=== PATIENT | male | born 1950 | race Caucasian/White ===

== ENCOUNTER 2016-07-22 21:15 | Emergency (ER) | payer MEDICARE ==
[2016-07-22] MEDS ORDERED: oxyCODONE/Acetamin 5/325 MG* TAB PO ONE ×2 (22:00→23:45)
[2016-07-22] MEDS ORDERED: Amoxicillin/Clavulanate TAB* 875 MG PO ONE (23:16)
[2016-07-22 23:48] VITALS: BP 123/53
--- NOTE | 2016-07-23 23:16 | ED ---
Lila Stanton Anna, scribed for Jose Rodriguez MD on 07/22/16 at 2206 . Bite Injury/Animal - HPI Summary HPI Summary: Patient is a 65 y/o male coming to [facility] presenting with sudden onset of an animal bite that occurred at 2100 this evening. His dog bit his nose, which now hurts with a pain of severity 10/10. The patient reports that he is up to date on his tetanus shot and that his dog is up-to-date on her vaccinations. He denies other symptoms. The bleeding is controlled with pressure. - History of Current Complaint Chief Complaint: EDAnimalBite Stated Complaint: DOG BITE Time Seen by Provider: 07/22/16 21:54 Hx Obtained From: Patient Onset of Injury: Happened minutes ago Type of Bite: Animal Has Animal Been Immunized?: Yes Pain Intensity: 10 Pain Scale Used: 0-10 Numeric - Allergies/Home Medications Allergies/Adverse Reactions: Allergies Allergy/AdvReac Type Severity Reaction Status Date / Time No Known Allergies Allergy Verified 07/22/16 21:22 PMH/Surg Hx/FS Hx/Imm Hx Previously Healthy: Yes Cardiovascular History: Reports: Hx Hypertension Infectious Disease History: No Infectious Disease History: Denies: Traveled Outside the [place] in Last 30 Days - Family History Known Family History: Negative: Cardiac Disease, Diabetes - Social History Lives: With Family Alcohol Use: None Hx Substance Use: No Substance Use Type: Reports: None Hx Tobacco Use: No Smoking Status (MU): Never Smoked Tobacco Review of Systems Positive: Other - animal bite to nose Psychological: Normal All Other Systems Reviewed And Are Negative: Yes Physical Exam Triage Information Reviewed: Yes Vital Signs On Initial Exam: Initial Vitals Temp Pulse Resp BP Pulse Ox 98.1 F 91 20 133/97 96 07/22/16 21:15 07/22/16 21:15 07/22/16 21:15 07/22/16 21:15 07/22/16 21:15 Vital Signs Reviewed: Yes Appearance: Positive: Well-Appearing, No Pain Distress Skin: Positive: Warm, Skin Color Reflects Adequate Perfusion, Dry Head/Face: Positive: Other - Flap-type laceration of lateral left naris through and through Eyes: Positive: Normal ENT: Positive: Normal ENT inspection Neck: Positive: Supple, Nontender Respiratory/Lung Sounds: Positive: Clear to Auscultation, Breath Sounds Present Cardiovascular: Positive: RRR Abdomen Description: Positive: Nontender, Soft Bowel Sounds: Positive: Present Musculoskeletal: Positive: Normal Neurological: Positive: Normal Psychiatric: Positive: Affect/Mood Appropriate Procedures - Laceration/Wound Repair 1 Location: face - left nare Description: Irregular - A full-thickness flap-type laceration of the left nare Anesthesia: Local, 2.0%, Lido Length, Depth and Shape: 3 cm Betadine Prep?: No - Hibiclens Laceration/Wound Explored: contaminated - dog bite and mucus from his nose Closure: Single Layer - the outside was closed and the inside was left open to drain Suture Type: Nylon - 6.0 Number of Sutures: 10 - simple interrupted Layer Closure?: No Sterile Dressing Applied?: Yes Diagnostics - Vital Signs Vital Signs Temp Pulse Resp BP Pulse Ox 07/22/16 21:15 98.1 F 91 20 133/97 96 - Laboratory Lab Statement: Any lab studies that have been ordered have been reviewed, and results considered in the medical decision making process. Bite Injury Course/Dx - Course Assessment/Plan: Patient is a 65 y/o male coming to [facility] presenting with sudden onset of an animal bite that occurred at 2100 this evening. His dog bit his nose, which now hurts with a pain of severity 10/10. The patient reports that he is up to date on his tetanus shot and that his dog is up-to-date on her vaccinations. He denies other symptoms. The bleeding is controlled with pressure. - Diagnoses Provider Diagnosis: Nasal laceration Discharge - Discharge Plan Condition: Stable Disposition: HOME Prescriptions: Amoxicillin/Clavulanate TAB* [Augmentin TAB 875*] 875 mg PO BID #14 tab oxyCODONE/Acetamin 5/325 MG* [Percocet 5/325 TAB*] 1 tab PO Q6H PRN #20 tab MDD 4 PRN Reason: Pain Patient Education Materials: Oxycodone/Acetaminophen (By mouth), Amoxicillin/ Clavulanate Potassium (By mouth), Animal Bite (ED), Laceration (ED) Referrals: [facility] PHYSICIAN REFERRAL [Outside] Additional Instructions: Follow up with primary care physician within 48 hours. Return to the emergency department for changing or worsening symptoms. The documentation as recorded by the Lila pierce Anna accurately reflects the service I personally performed and the decisions made by , Jose Rodriguez MD.
== END 2016-07-22 23:40 | disposition home or self-care (01) ==
LOC: ED 21:15
DX: S01.25XA Open bite of nose, initial encounter (principal); W54.0XXA Bitten by dog, initial encounter; Y92.9 Unspecified place or not applicable; I10 Essential (primary) hypertension
CPT/HCPCS: 12013; 99283; A9270-GY

== ENCOUNTER 2017-11-29 19:02 | Emergency (ER) | payer MEDICARE, OTHER ==
[2017-11-29] MEDS ORDERED: Lidocaine 1%* 5 ML VIAL INJ ONE (19:37)
[2017-11-29] MEDS ORDERED: Lidocaine 1%* 5 ML VIAL ONE (19:40)
--- NOTE | 2017-11-29 19:45 | ED ---
Lower Extremity - HPI Summary HPI Summary: Pt. is a 67 y.o male who presents to the ER for a right foot injury that occurred today. Pt. states he was swimming at the [facility] pool when he hit his right heel on the concrete. Associated symptoms of laceration. Pt. states foot is very painful with ambulation. Pt. states his last tetanus was within 5 years. Is on Xarelto. Symptoms are mild in severity. - History of Current Complaint Chief Complaint: EDExtremityLower Stated Complaint: RT FOOT LAC Time Seen by Provider: 11/29/17 19:23 Hx Obtained From: Patient Pain Intensity: 6 - Allergies/Home Medications Allergies/Adverse Reactions: Allergies Allergy/AdvReac Type Severity Reaction Status Date / Time No Known Allergies Allergy Verified 11/29/17 19:21 Home Medications: Home Medications NK [No Home Medications Reported] 11/29/17 [History Confirmed 11/29/17] PMH/Surg Hx/FS Hx/Imm Hx Previously Healthy: Yes Cardiovascular History: Reports: Hx Hypertension - Immunization History Date of Tetanus Vaccine: 4 years ago Infectious Disease History: No Infectious Disease History: Denies: Traveled Outside the [place] in Last 30 Days - Family History Known Family History: Negative: Cardiac Disease, Diabetes - Social History Alcohol Use: None Hx Substance Use: No Substance Use Type: Reports: None Hx Tobacco Use: No Smoking Status (MU): Never Smoked Tobacco Review of Systems Positive: Other - Right foot pain and laceration All Other Systems Reviewed And Are Negative: Yes Physical Exam Triage Information Reviewed: Yes Vital Signs On Initial Exam: Initial Vitals Temp Pulse Resp BP Pulse Ox 97.5 F 70 14 143/87 96 11/29/17 19:15 11/29/17 19:15 11/29/17 19:15 11/29/17 19:15 11/29/17 19:15 Vital Signs Reviewed: Yes Appearance: Positive: Well-Appearing - Pt. lying on bed in NAD. Skin: Positive: Warm, Dry Head/Face: Positive: Normal Head/Face Inspection Eyes: Positive: Normal Musculoskeletal: Positive: Other Neurological: Positive: Normal, CN Intact II-III, Ataxic Gait - 1 cm laceration noted to the posterior right foot. No active bleeding. Pain to the calcaneus. Achilles tendon is intact. Psychiatric: Positive: Affect/Mood Appropriate Procedures - Laceration/Wound Repair 1 Location: lower extremity - Right heel Description: Linear Anesthesia: Local, 1.0% Length, Depth and Shape: 1cm linear Betadine Prep?: No - hibiclens Laceration/Wound Explored: clean Suture Type: Nylon - 4-0 Number of Sutures: 3 Layer Closure?: No Sterile Dressing Applied?: Yes Diagnostics - Vital Signs Vital Signs Temp Pulse Resp BP Pulse Ox 11/29/17 19:15 97.5 F 70 14 143/87 96 - Laboratory Lab Statement: Any lab studies that have been ordered have been reviewed, and results considered in the medical decision making process. Lower Extremity Course/Dx - Course Course Of Treatment: Patient presenting for right foot injury and laceration. Strays negative for acute findings, reading per radiology. Wound was cleaned and repaired as noted above. Advised patient daily wound checks. Suture removal in 7-10 days. To keep wound clean and dry. To ice and elevate foot intermittently. To return to the ER for redness, swelling or drainage from wound. Tylenol for pain as directed. Pt. understands and agrees with plan. - Diagnoses Differential Diagnosis/HQI/PQRI: Positive: Fracture (Closed), Puncture Wound, Sprain, Strain Provider Diagnoses: Contusion, Laceration Discharge - Sign-Out/Discharge Documenting (check all that apply): Discharge/Admit/Transfer - Discharge Plan Condition: Good Disposition: HOME Patient Education Materials: Care For Your Stitches (ED), Laceration (ED) Referrals: Torey Alexis MD [Primary Care Provider] - Additional Instructions: Suture removal in 7 days Daily wound checks Keep wound clean and dry Ice and elevate Tylenol for pain as directed Return to ER for redness, swelling or drainage from wound site - Billing Disposition and Condition Condition: GOOD Disposition: Home
--- NOTE | 2017-11-29 20:02 | RAD ---
Indication: Right foot pain. 3 views of the right foot demonstrates no fracture. Fusion of the calcaneus and talus. IMPRESSION: No fracture of the right foot is noted.
[2017-11-29 20:30] VITALS: BP 156/83
== END 2017-11-29 20:29 | disposition home or self-care (01) ==
LOC: ED 19:02
DX: S91.311A Laceration without foreign body, right foot, initial encounter (principal); S90.31XA Contusion of right foot, initial encounter; W22.8XXA Striking against or struck by other objects, initial encounter; Y93.11 Activity, swimming; Y92.9 Unspecified place or not applicable; I10 Essential (primary) hypertension
CPT/HCPCS: 12001; 99283

== ENCOUNTER 2019-06-05 05:59 | Day surgery (SDC) | payer MEDICARE, OTHER ==
[~2019-06-05 05:59] MED LIST: DiMENhydriNATE IV* 50 MG/ML VIAL IV PUSH PRN; HYDROmorphone INJ1* 1 MG/ML SYRINGE IV PRN; Naloxone* 0.4 MG/ML 1 ML VIAL IV PRN; PROCHLORPERAZINE INJ 5 MG/ML 2 ML VIAL IV PRN; oxyCODONE TAB* 5 MG TAB PO PRN
[2019-06-05] MEDS ORDERED: Dexamethasone TAB* 4 MG PO ONE (06:00)
[2019-06-05] MEDS ORDERED: Famotidine IV* 10 MG/ML 2 ML (20 mg) IV ONE (06:00)
[2019-06-05] MEDS ORDERED: Lactated Ringers 1000 ML Bag* 1,000 ML IV SCH (06:00)
[2019-06-05] MEDS ORDERED: Ondansetron ODT TAB* 4 MG PO ONE (06:00)
[2019-06-05] MEDS ORDERED: Famotidine IV* 10 MG/ML 2 ML (20 mg) ONE (06:13)
[2019-06-05] MEDS ORDERED: Dexamethasone TAB* 4 MG ONE (06:13)
[2019-06-05] MEDS ORDERED: Ondansetron ODT TAB* 4 MG ONE (06:13)
[2019-06-05] MEDS ORDERED: Buffered Lidocaine 1% SYRIN* 1 ML/SYRINGE INTRADERM ONE ×2 (06:13→09:09)
[2019-06-05] MEDS ORDERED: ceFAZolin 2 GM in NS PREMIX(*) 2 GM/100 ML BAG IVPB ONE (06:14)
[2019-06-05] MEDS ORDERED: fentaNYL* 50 MCG/ML 2 ML VIAL (100 MCG VIAL) ONE ×3 (06:57→10:45)
[2019-06-05] MEDS ORDERED: Midazolam* 1 MG/ML 5 ML VIAL (5 MG) ONE (06:57)
[2019-06-05] MEDS ORDERED: Propofol* 10 MG/ML 20 ML BTL ONE (06:57)
[2019-06-05] MEDS ORDERED: KETAMINE HCL* 50 MG/ML 10 ML VIAL ONE (06:57)
[2019-06-05] MEDS ORDERED: ROPIVACAINE 5 MG/ML 30 ML BTL (0.5%) ONE (06:58)
[2019-06-05] MEDS ORDERED: Bupivacaine 0.5%* 50 ML MDV VIAL ONE (07:00)
[2019-06-05] MEDS ORDERED: EPHEDrine (Pressors)* 50 MG/ML VIAL ONE (08:33)
[2019-06-05] MEDS ORDERED: Acetaminophen IV 1GM/100ML * 100 ML ONE (08:33)
[2019-06-05] MEDS ORDERED: Phenylephrine 10 MG/ML VIAL* 1 ML VIAL ONE (08:33)
[2019-06-05] MEDS ORDERED: Phenylephrine 40 MCG/ML SYRINGE ONE (08:33)
[2019-06-05] MEDS ORDERED: Ketorolac INJ* 30 MG/ML 1 ML VIAL ONE (09:37)
[2019-06-05] MEDS: fentaNYL* 50 MCG/ML 2 ML VIAL (100 MCG VIAL) IV PRN ×4 (10:46→11:16)
--- NOTE | 2019-06-05 10:56 | OP ---
Operative Report - Blank - Operative Report Date of Operation: 06/05/19 Note: PATIENT: Patric Michaels DATE OF : 1950 DATE OF SURGERY: 06/05/2019 SURGEON: Ricky Shah MD CLERICAL ASSOCIATE: ALAINA Gama, whos assistance was necessary for positioning, retraction, help with instrumentation, and closure. ANESTHESIOLOGIST: Dr. 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 Right foot painful and broken retained hardware. 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 Right foot painful and broken retained hardware. Right peroneus longus tendon tear. OPERATION: 1. Right foot removal of hardware 2. Right revision subtalar arthrodesis with tibial bone autograft and allograft 3. Right peroneus longus tendon repair ANESTHESIA: General + Block IMPLANTS: Two Arthrex 6.5mm cannulated screws TOURNIQUET TIME: 2 hours with a well-padded thigh tourniquet at 250mmHg SPECIMENS: none ESTIMATED BLOOD LOSS: minimal COMPLICATIONS: none STATUS: Stable from the operating room to the recovery room and then home. INDICATIONS FOR PROCEDURE: Patric had an attempted right subtalar fusion 16 years ago after a calcaneus fracture. He went on to a nonunion and has had persistent hindfoot pain. He has elected to move forward with a revision arthrodesis. He does have a history of DVTs, and has been off of his xarelto, and on a Lovenox bridge. Both operative and non-operative treatment alternatives were reviewed. Further, the nature and risks of surgery were reviewed in careful detail. Our discussions regarding the risks of surgery included, but were not limited to, infection, wound problems, nerve injury, neuroma, RSD, persistent symptoms, blood clot, nonunion, malunion, hardware failure, adjacent joint arthritis, need for further surgery, failure of the surgery, and even the remote chance of catastrophic complication. DESCRIPTION OF PROCEDURE: The patient was seen in the preoperative holding unit and informed written consent was obtained. The appropriate extremity was marked. The patient was then brought to the operating room and carefully positioned on the operating room table. Anesthesia was induced. All bony prominences were padded with great care. A well-padded thigh tourniquet was placed. A chlorhexidine based pre- scrub was performed followed by a chloraprep prep and drape in standard sterile fashion. A surgical safety pause was then conducted in which we confirmed the appropriate patient, extremity, planned procedure, availability of equipment, indication and administration of prophylactic antibiotics, and DVT prophylaxis in the form of a compression boot on the non-surgical extremity. I used the prior heel incision and fluoroscopy to localize the screw head. There was bony overgrowth. I had to use a Rongeur to remove some bone. I then used a K wire to cannulate the screw. The screw head was stripped, so I ended up using a broken screw removal set and reverse threading to remove half of the screw. I then performed an Esmarch exsanguination of the limb and inflated the tourniquet. I utilized his prior hindfoot lateral incision. I carefully dissected down to the joint, making sure to protect the peroneal tendons. A tear of the peroneus longus was appreciated. I then used laminar spreaders to distract the joint while I worked. Because of the screw still crossing the subtalar joint, I was only able to distract a few millimeters. I used the Konokopia metal cutting magi with constant irrigation to then cut the screw at the level of the subtalar joint. This then allowed me to distract the joint further. There was a gross nonunion without any evidence of bony bridging at all. Fibrous tissue in the joint was removed with curettes. Osteophytes were excised. I then prepared the subtalar joint surfaces for fusion. This was performed with a 2.4mm magi, small drill, and osteotomes. The joint was then thoroughly irrigated to remove any remaining debris. I then packed demineralized bone matrix into the posterior aspect of the joint. I then turned my attention to the lateral tibial plateau. An incision was made over Gerdy's tubercle and I carefully dissected down to the lateral aspect of the proximal tibia. I then windowed the cortex of the tibia and used a curette to extract cancellous bone graft. This bone graft was then packed into the subtalar joint fusion site. Cancellus allograft chips were then placed into the donor site. The donor site was irrigated and closed in layers utilizing 0 Vicryl, 3-0 Monocryl and 3-0 nylon. I then manually reduced the subtalar joint and placed guide pins for cannulated screws. Given the retained hardware, and prior screw tract, it was more difficult than usual to get the trajectory of the guidewires. A depth gauge was used to measure length, and the pins were over drilled. I then used two 6.5 mm cannulated screws to provide fixation. These had phenomenal purchase and compression. I then used the remaining cancellus allograft chips and demineralized bone matrix to pack into any voids at the subtalar joint, especially at the sinus tarsi. Fluoroscopy was used throughout the case to assist in reduction and placement of the hardware. At the end of the case. Final fluoroscopic images were obtained. I used a 3-0 Ethibond suture to then perform a repair of the peroneus longus tendon tear. The wounds were then copiously irrigated and meticulously closed in layers utilizing 3-0 Monocryl and 3-0 nylon for the skin. A sterile dressing was then applied followed by a well-padded splint. The patient was then awakened from anesthesia and transferred to the recovery room in stable condition. There were no complications. All needle and sponge counts were correct at the end of the case. This case was significantly more difficult than a typical subtalar fusion. 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 Additionally, there was broken hardware that was difficult to remove, and even once removed, still traversed the subtalar joint. This required me to use a metal cutting magi to cut the screw to just get into the subtalar joint. This all led to substantially increased time, technical skill, and intensity of the procedure than is typical for a subtalar fusion. ATTESTATION: I attest I was present and scrubbed and performed the critical portions of the procedure myself. POSTOPERATIVE PLAN: The plan is for nonweightbearing for anticipated duration of 8 weeks. Follow-up will be in 2 weeks for likely suture removal, x-rays, and transition to a short-leg nonweightbearing cast. He will restart his xarelto tomorrow morning.
[2019-06-05 12:31] VITALS: BP 167/32
== END 2019-06-05 13:13 | disposition home or self-care (01) ==
LOC: OR 05:59
PROVIDERS: ATTEND Orthopaedic Surgery
DX: M96.0 Pseudarthrosis after fusion or arthrodesis (principal); T84.84XA Pain due to internal orthopedic prosthetic devices, implants and grafts, initial encounter; Y83.1 Surgical operation with implant of artificial internal device as the cause of abnormal reaction of the patient, or of later complication, without mention of misadventure at the time of the procedure; S96.811D Strain of other specified muscles and tendons at ankle and foot level, right foot, subsequent encounter; X58.XXXD Exposure to other specified factors, subsequent encounter; M19.071 Primary osteoarthritis, right ankle and foot; Y92.9 Unspecified place or not applicable; Z86.718 Personal history of other venous thrombosis and embolism; Z79.01 Long term (current) use of anticoagulants; Z87.891 Personal history of nicotine dependence; G89.18 Other acute postprocedural pain
CPT/HCPCS: 76000; 88300; A9270-GY; C1713; C1776; J0690; J1885; J2250; J2704; J2795; J3010; J3490; J8540